=== PATIENT | female | born 1965 | race Caucasian/White ===

== ENCOUNTER 2018-08-28 10:58 | Inpatient (IN) | payer OTHER ==
[~2018-08-28] VITALS: Ht 160 cm; Wt 63.5 kg
[~2018-08-28 10:58] MED LIST: CARI350T NGT; FERR27TA; HYDR-3504 PO; MULT1TAB59 PO; PREN1TAB49; VENL225T PO
[2018-08-28 15:30] VITALS: BP 120/63; PULSE 85; RESP 16
[2018-08-28] MEDS ORDERED: GABA300S PO (16:44)
[2018-08-28] MEDS ORDERED: LAMO100T83 PO (16:48)
[2018-08-28] MEDS ORDERED: VENL50TA2 PO (16:50)
[2018-08-28] MEDS ORDERED: ACETAMINOPHEN 325 MG TAB PO PRN (17:30)
[2018-08-28] MEDS ORDERED: BISACODYL 10 MG SUPP PR PRN (17:30)
[2018-08-28] MEDS: SOD CHLORIDE 0.9% 1,000 ML IV SCH (17:58)
[2018-08-28] MEDS: CEFTRIAXONE 1 GM/50 ML (PMX) 50 ML IVPB SCH (17:58)
[2018-08-28] MEDS: LORAZEPAM 2 MG INJ IV PRN ×2 (18:12→22:16)
[2018-08-28 20:01] VITALS: BP 129/60; PULSE 84; RESP 20
--- NOTE | 2018-08-28 20:38 | QN ---
Documentation Comment [id number] EN STEPHENS MD Aug 28, 2018 20:37
[2018-08-28] MEDS: ALBUTEROL 0.083% (NEB) 2.5 MG/3 ML AMP HHN SCH (20:57)
[2018-08-28] MEDS: IPRATROPIUM (NEB) 0.5 MG/2.5 ML AMP HHN SCH (20:57)
[2018-08-28] MEDS: HEPARIN 5,000 UNIT/1 ML VIAL SC SCH (22:09)
[2018-08-28] MEDS: CHLORDIAZEPOXIDE 25 MG CAP PO SCH (22:09)
[2018-08-28] MEDS: morphine 2 MG INJ IV PRN (22:09)
[2018-08-29] MEDS: IPRATROPIUM (NEB) 0.5 MG/2.5 ML AMP HHN SCH ×6 (01:31→19:03)
[2018-08-29] MEDS: ALBUTEROL 0.083% (NEB) 2.5 MG/3 ML AMP HHN SCH ×4 (01:31→19:03)
[2018-08-29 02:11] VITALS: BP 111/56; PULSE 71; RESP 18
[2018-08-29] MEDS: PANTOPRAZOLE (EC) 40 MG TAB PO SCH (05:24)
[2018-08-29] MEDS: HEPARIN 5,000 UNIT/1 ML VIAL SC SCH ×2 (05:25→21:01)
[2018-08-29 07:34] VITALS: BP 107/54; PULSE 72; RESP 17
[2018-08-29] MEDS ORDERED: DOCUSATE SODIUM 100 MG CAP PO SCH (09:00)
[2018-08-29] MEDS ORDERED: MULTIVITAMINS 10 ML, THIAMINE 100 MG, FOLIC ACID 1 MG in SOD CHLORIDE 0.9% 1,000 ML IVPB SCH (09:00)
[2018-08-29] MEDS: THIAMINE 100 MG TAB PO SCH (09:22)
[2018-08-29] MEDS: CHLORDIAZEPOXIDE 25 MG CAP PO SCH ×3 (09:22→20:57)
[2018-08-29] MEDS: FOLIC ACID 1 MG TAB PO SCH (09:22)
[2018-08-29] MEDS: MULTIVITAMINS/MINERALS TAB PO SCH (09:22)
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
[2018-08-29] MEDS: morphine 2 MG INJ IV PRN ×3 (10:57→21:37)
[2018-08-29] MEDS ORDERED: DOCUSATE SODIUM 100 MG CAP PO PRN (12:00)
[2018-08-29] MEDS: SOD CHLORIDE 0.9% 1,000 ML IV SCH (13:47)
[2018-08-29 14:07] VITALS: BP 116/70; PULSE 87; RESP 18
[2018-08-29] MEDS: CEFTRIAXONE 1 GM/50 ML (PMX) 50 ML IVPB SCH (17:32)
[2018-08-29 19:48] VITALS: BP 121/61; PULSE 88; RESP 18
[2018-08-30] MEDS: ALBUTEROL 0.083% (NEB) 2.5 MG/3 ML AMP HHN SCH ×4 (00:36→20:02)
[2018-08-30] MEDS: IPRATROPIUM (NEB) 0.5 MG/2.5 ML AMP HHN SCH ×6 (00:36→20:02)
[2018-08-30 02:17] VITALS: BP 99/50; PULSE 85; RESP 18
[2018-08-30] MEDS: morphine 2 MG INJ IV PRN ×4 (04:05→20:21)
[2018-08-30] MEDS: LORAZEPAM 2 MG INJ IV PRN ×3 (04:34→21:18)
[2018-08-30] MEDS: PANTOPRAZOLE (EC) 40 MG TAB PO SCH (05:08)
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
[2018-08-30 08:03] VITALS: BP 112/68; PULSE 74; RESP 18
[2018-08-30] MEDS: CHLORDIAZEPOXIDE 25 MG CAP PO SCH ×3 (08:34→20:22)
[2018-08-30] MEDS: MULTIVITAMINS/MINERALS TAB PO SCH (08:34)
[2018-08-30] MEDS: THIAMINE 100 MG TAB PO SCH (08:34)
[2018-08-30] MEDS: FOLIC ACID 1 MG TAB PO SCH (08:34)
[2018-08-30] MEDS: HEPARIN 5,000 UNIT/1 ML VIAL SC SCH ×2 (08:37→20:24)
[2018-08-30] MEDS: SOD CHLORIDE 0.9% 1,000 ML IV SCH (11:50)
[2018-08-30 14:50] VITALS: BP 104/50; PULSE 77; RESP 18
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
[2018-08-30] MEDS: CEFTRIAXONE 1 GM/50 ML (PMX) 50 ML IVPB SCH (17:18)
[2018-08-30 19:54] VITALS: BP 106/61; PULSE 75; RESP 18
[2018-08-30 20:17] VITALS: BP 169/79; PULSE 80; RESP 18
[2018-08-31] MEDS: morphine 2 MG INJ IV PRN ×4 (00:37→13:59)
[2018-08-31] MEDS: LORAZEPAM 2 MG INJ IV PRN ×5 (01:21→22:39)
[2018-08-31] MEDS: IPRATROPIUM (NEB) 0.5 MG/2.5 ML AMP HHN SCH ×6 (02:03→20:44)
[2018-08-31] MEDS: ALBUTEROL 0.083% (NEB) 2.5 MG/3 ML AMP HHN SCH ×4 (02:03→20:00)
[2018-08-31 02:05] VITALS: BP 102/89; PULSE 85; RESP 18
[2018-08-31] MEDS: SOD CHLORIDE 0.9% 1,000 ML IV SCH ×2 (05:44→08:25)
[2018-08-31] MEDS: PANTOPRAZOLE (EC) 40 MG TAB PO SCH (05:45)
[2018-08-31 07:21] VITALS: BP 111/57; PULSE 87; RESP 18
[2018-08-31] MEDS: THIAMINE 100 MG TAB PO SCH (08:26)
[2018-08-31] MEDS: FOLIC ACID 1 MG TAB PO SCH (08:26)
[2018-08-31] MEDS: HEPARIN 5,000 UNIT/1 ML VIAL SC SCH ×2 (08:26→20:43)
[2018-08-31] MEDS: CHLORDIAZEPOXIDE 25 MG CAP PO SCH ×3 (08:26→20:42)
[2018-08-31] MEDS: MULTIVITAMINS/MINERALS TAB PO SCH (08:26)
[2018-08-31 14:44] VITALS: BP 118/61; PULSE 75; RESP 18
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
[2018-08-31] MEDS ORDERED: IBUPROFEN 400 MG TAB PO PRN (15:00)
[2018-08-31] MEDS: CEFTRIAXONE 1 GM/50 ML (PMX) 50 ML IVPB SCH (17:15)
--- NOTE | 2018-08-31 18:23 | PSY ---
Date/Time of Note Date/Time of Note DATE: 08/31/18 TIME: 18:19 Psychiatric Subjective Eval Consent Pt consented to telemedicine: No Subjective Evaluation Patient location: inpatient History of present illness Patient is a female who is currently in the [facility] admitted for alcohol abuse and delirium tremens. The patient currently denies any alcohol abuse now, but she reports feeling sad and anxious. Patient denies suicidal ideation and contracted for safety. Discussed risk and benefits of Lamictal and Effexor, which patient states at her regular psych meds and she verbalized understanding Hospitalization: other Family History Problems Family History Problems: (1) Family history of hepatitis C Relations: G8 SIBLING, onset: - 39 Allergies: Coded Allergies: No Known Allergies (Verified Allergy, Unknown, 11/10/14) Substance Abuse Substance abuse history: No Prior substance abuse treatmen: No Social History Marital status: other DPA/Conservatorship: No Psychiatric Objective Eval Review of Systems: Review of Systems: Not Applicable Physical Examination: Appetite: Decreased Energy: Decreased Mental Status Examination: Appearance: Poor Hygiene Eye Contact: Fair Psychomotor Activity: Slow Behavior: Cooperative Speech: Soft Though Process: Linear Orientation: x4 Insight: Mild Judgement: Mild Attention Span: Distractible Laboratory Results Laboratory Tests Test 08/30/18 05:58 White Blood Count 3.2 10^3/ul Red Blood Count 3.80 10^6/ul Hemoglobin 12.5 g/dl Hematocrit 38.4 % Mean Corpuscular Volume 101.1 fl Mean Corpuscular Hemoglobin 32.9 pg Mean Corpuscular Hemoglobin Concent 32.6 g/dl Red Cell Distribution Width 16.7 % Platelet Count 132 10^3/UL Mean Platelet Volume 9.3 fl Immature Granulocytes % 6.900 % Neutrophils % % Segmented Neutrophils % (Manual) 31 % Band Neutrophils % (Manual) 6 % Lymphocytes % % Lymphocytes % (Manual) 31 % Reactive Lymphocytes % (Manual) 2 % Monocytes % % Monocytes % (Manual) 19 % Eosinophils % % Eosinophils % (Manual) 5 % Basophils % % Basophils % (Manual) 2 % Metamyelocytes % (manual) 3 % Myelocytes % (Manual) 1 % Nucleated Red Blood Cells % 0.0 /100WBC Immature Granulocytes # 0.220 10^3/ul Neutrophils # 10^3/ul Neutrophils # (Manual) 1.0 10^3/ul Band Neutrophils # 0.1 10^3/ul Lymphocytes (Manual) 0.9 10^3/ul Lymphocytes # 10^3/ul Reactive Lymphocytes # 0.0 10^3/ul Monocytes # 10^3/ul Monocytes # (Manual) 0.6 10^3/ul Eosinophils # 10^3/ul Basophils # 10^3/ul Basophils # (Manual) 0.0 10^3/ul Metamyelocytes # 0.0 10^3/ul Myelocytes # 0.0 10^3/ul Nucleated Red Blood Cells # 10^3/ul Platelet Estimate DECREASED Polychromasia 2+ Anisocytosis 1+ Macrocytosis 1+ Sodium Level 143 mmol/L Potassium Level 3.8 mmol/L Chloride Level 108 mmol/L Carbon Dioxide Level 26 mmol/L Anion Gap 9 Blood Urea Nitrogen 16 mg/dl Creatinine 0.75 mg/dl Est Glomerular Filtrat Rate mL/min > 60 mL/min Glucose Level 109 mg/dl Calcium Level 9.9 mg/dl Assessment and Plan Assessment/Diagnosis Diagnosis Mood disorder NOS Recommendation/Plan Medication Management Lamictal 50 mg twice a day, Effexor 75 mg daily Multiple antipsychotics: No Psychotherapy Provide supportive therapy Discharge Disposition: Other Legal Status: Voluntary (Patient does not meet criteria for 5150 hold) MARCELLA DE OLIVEIRA NP Aug 31, 2018 18:22
[2018-08-31 20:00] VITALS: BP 114/61; PULSE 80; RESP 17
[2018-08-31 22:29] VITALS: Ht 160 cm; Wt 63.5 kg
[2018-09-01] MEDS: IPRATROPIUM (NEB) 0.5 MG/2.5 ML AMP HHN SCH ×6 (01:00→20:41)
[2018-09-01] MEDS: ALBUTEROL 0.083% (NEB) 2.5 MG/3 ML AMP HHN SCH ×4 (01:15→20:00)
[2018-09-01 02:00] VITALS: BP_SYST 121; BP_SYST 159; BP_DIAS 65; BP_DIAS 78; PULSE 80; RESP 17; RESP 19
[2018-09-01] MEDS: KETOROLAC 15 MG INJ IV PRN ×3 (05:10→20:52)
[2018-09-01] MEDS: PANTOPRAZOLE (EC) 40 MG TAB PO SCH (05:18)
[2018-09-01] MEDS: LORAZEPAM 2 MG INJ IV PRN ×3 (06:56→21:51)
[2018-09-01 07:48] VITALS: BP 99/54; PULSE 81; RESP 16
[2018-09-01] MEDS: FOLIC ACID 1 MG TAB PO SCH (08:11)
[2018-09-01] MEDS: MULTIVITAMINS/MINERALS TAB PO SCH (08:11)
[2018-09-01] MEDS: CHLORDIAZEPOXIDE 25 MG CAP PO SCH ×3 (08:12→20:49)
[2018-09-01] MEDS: THIAMINE 100 MG TAB PO SCH (08:12)
[2018-09-01] MEDS: HEPARIN 5,000 UNIT/1 ML VIAL SC SCH ×2 (08:13→20:51)
[2018-09-01] MEDS: LAMOTRIGINE 25 MG TAB PO SCH ×2 (11:22→20:49)
[2018-09-01] MEDS: VENLAFAXINE 75 MG TABLET PO SCH (11:30)
[2018-09-01] MEDS: ONDANSETRON 4 MG INJ IV PRN ×2 (12:32→20:52)
[2018-09-01 14:00] VITALS: BP 121/58; PULSE 75; RESP 18
[2018-09-01] MEDS: SOD CHLORIDE 0.9% 1,000 ML IV SCH ×2 (14:14→22:00)
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
[2018-09-01] MEDS: CEFTRIAXONE 1 GM/50 ML (PMX) 50 ML IVPB SCH (18:00)
[2018-09-01 20:00] VITALS: BP_SYST 122; BP_SYST 159; BP_DIAS 60; BP_DIAS 78; PULSE 96; PULSE 99; RESP 17
[2018-09-02] MEDS: IPRATROPIUM (NEB) 0.5 MG/2.5 ML AMP HHN SCH ×4 (01:00→17:00)
[2018-09-02] MEDS: ALBUTEROL 0.083% (NEB) 2.5 MG/3 ML AMP HHN SCH ×3 (01:44→13:31)
[2018-09-02 02:30] VITALS: BP 101/60; PULSE 78; RESP 18
[2018-09-02] MEDS: PANTOPRAZOLE (EC) 40 MG TAB PO SCH (05:32)
[2018-09-02] MEDS: KETOROLAC 15 MG INJ IV PRN ×2 (05:32→11:43)
[2018-09-02] MEDS: LORAZEPAM 2 MG INJ IV PRN (06:45)
[2018-09-02] MEDS: LAMOTRIGINE 25 MG TAB PO SCH (08:26)
[2018-09-02] MEDS: VENLAFAXINE 75 MG TABLET PO SCH (08:26)
[2018-09-02] MEDS: THIAMINE 100 MG TAB PO SCH (08:27)
[2018-09-02] MEDS: HEPARIN 5,000 UNIT/1 ML VIAL SC SCH (08:27)
[2018-09-02] MEDS: CHLORDIAZEPOXIDE 25 MG CAP PO SCH ×2 (08:27→13:27)
[2018-09-02] MEDS: FOLIC ACID 1 MG TAB PO SCH (08:27)
[2018-09-02] MEDS: MULTIVITAMINS/MINERALS TAB PO SCH (08:27)
[2018-09-02] MEDS: ONDANSETRON 4 MG INJ IV PRN (09:30)
[2018-09-02] MEDS: SOD CHLORIDE 0.9% 1,000 ML IV SCH (14:41)
--- NOTE | 2018-09-02 15:33 | PDOCDIS ---
Discharge Instructions DIAGNOSIS Discharge Diagnosis mood disorder tremolousness alcholol use CONDITION [id number] Patient Condition: Yphum7u Fair HOME CARE INSTRUCTIONS: [id number] Diet Instructions: Udyid8c Regular ACTIVITY: [id number] Activity Restrictions: Srlsi4h No Restrictions Slowly Increase Activity Rest between Activity [id number] Bathing Restrictions: [id number] Shower [id number] Activity Restrictions Comment: Fmdae7r use walker FOLLOW UP/APPOINTMENTS Follow-up Plan fu PCP in 1 week fu pscychatrsit in1 -2 weeks avoid stressors/alcholol home health to CHRISTI Everett MD Sep 02, 2018 15:33
[2018-09-02] MEDS ORDERED: THIA100T56 PO (15:35)
[2018-09-02] MEDS ORDERED: PANT40TA4 PO (15:35)
[2018-09-02] MEDS ORDERED: FOLI-49 PO (15:35)
[2018-09-02] MEDS ORDERED: VENL75TA PO (15:35)
[2018-09-02] MEDS ORDERED: CHLO25CA9 PO (15:35)
[2018-09-02] MEDS ORDERED: IBUP-1541 PO (15:35)
[2018-09-02] MEDS ORDERED: LAMO25TA8 PO (15:35)
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
== END 2018-09-02 17:15 | disposition home health service (06) | DRG 897 ==
LOC: PP2 15:26 → 5EC 19:24
PROVIDERS: ADMIT Internal Medicine Nephrology; ATTEND Internal Medicine Nephrology
DX: F10.231 Alcohol dependence with withdrawal delirium (principal); D61.818 Other pancytopenia; N39.0 Urinary tract infection, site not specified; D64.9 Anemia, unspecified; M54.5 Low back pain; F31.9 Bipolar disorder, unspecified; R94.5 Abnormal results of liver function studies
CPT/HCPCS: 76705; 80048; 80053; 82607; 82746; 84703; 85025; 87081; 94640; 94664; 97116; 97161; 97530; J0696; J1644; J1885; J2060; J2270; J2405; J7030

== ENCOUNTER 2018-09-26 15:12 | Inpatient (IN) | payer OTHER ==
[~2018-09-26] VITALS: Ht 160 cm; Wt 60.9 kg
[~2018-09-26 15:12] MED LIST changes: -CARI350T NGT; +CHLO25CA9 PO; +FOLI-49 PO; -HYDR-3504 PO; +IBUP-1541 PO; +LAMO25TA8 PO; +PANT40TA4 PO; +THIA100T56 PO; -VENL225T PO; +VENL75TA PO
[2018-09-26 17:30] VITALS: BP 115/85; PULSE 90; RESP 16; Ht 160 cm; Wt 60.9 kg
[2018-09-26] MEDS ORDERED: ACETAMINOPHEN 325 MG TAB PO PRN (18:30)
[2018-09-26] MEDS: LORAZEPAM 2 MG INJ IV PRN (19:11)
[2018-09-26 20:00] VITALS: BP 124/59; PULSE 82; RESP 18
[2018-09-26] MEDS: CEFTRIAXONE 1 GM/50 ML (PMX) 50 ML IVPB SCH (22:23)
[2018-09-26] MEDS: POTASSIUM CHLORIDE 10 MEQ in SOD CHLORIDE 0.45% 1,000 ML IV SCH (22:23)
[2018-09-27] MEDS: LORAZEPAM 2 MG INJ IV PRN ×6 (01:21→23:38)
[2018-09-27] MEDS: ONDANSETRON 4 MG INJ IV PRN ×4 (01:21→18:37)
[2018-09-27 02:00] VITALS: BP 128/71; PULSE 91; RESP 17
[2018-09-27] MEDS: traMADol 50 MG TAB PO PRN ×2 (04:51→10:48)
[2018-09-27] MEDS: PANTOPRAZOLE (EC) 40 MG TAB PO SCH (06:30)
[2018-09-27 08:04] VITALS: BP 117/71; PULSE 82; RESP 18
[2018-09-27] MEDS: MULTIVITAMINS 10 ML, THIAMINE 100 MG, FOLIC ACID 1 MG in SOD CHLORIDE 0.9% 1,000 ML IVPB SCH (09:16)
[2018-09-27] MEDS: POTASSIUM CHLORIDE 10 MEQ in SOD CHLORIDE 0.45% 1,000 ML IV SCH ×2 (09:18→18:37)
[2018-09-27 14:00] VITALS: BP 120/68; PULSE 67; RESP 18
--- NOTE | 2018-09-27 15:21 | QN ---
Documentation Comment pt seen and examined CHRISTI SANDS MD Sep 27, 2018 15:21
[2018-09-27] MEDS ORDERED: ONDANSETRON 4 MG INJ IV PRN (16:00)
[2018-09-27] MEDS: CEFTRIAXONE 1 GM/50 ML (PMX) 50 ML IVPB SCH (18:34)
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
[2018-09-27 20:00] VITALS: BP 120/62; PULSE 77; RESP 18
[2018-09-27] MEDS: morphine 2 MG INJ IV PRN (20:14)
[2018-09-28] MEDS: morphine 2 MG INJ IV PRN ×5 (00:55→18:08)
[2018-09-28 02:00] VITALS: BP 121/70; PULSE 79; RESP 17
[2018-09-28] MEDS: ONDANSETRON 4 MG INJ IV PRN ×3 (04:04→16:21)
[2018-09-28] MEDS: LORAZEPAM 2 MG INJ IV PRN ×5 (04:04→20:51)
[2018-09-28] MEDS: PANTOPRAZOLE (EC) 40 MG TAB PO SCH (05:35)
[2018-09-28] MEDS: MULTIVITAMINS 10 ML, THIAMINE 100 MG, FOLIC ACID 1 MG in SOD CHLORIDE 0.9% 1,000 ML IVPB SCH (08:17)
[2018-09-28 08:23] VITALS: BP 118/60; PULSE 85; RESP 18
[2018-09-28] MEDS: POTASSIUM CHLORIDE 10 MEQ in SOD CHLORIDE 0.45% 1,000 ML IV SCH ×2 (11:43→20:47)
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
[2018-09-28] MEDS: MECLIZINE 12.5 MG TAB PO SCH ×2 (12:16→21:59)
[2018-09-28] MEDS ORDERED: PREMVAG VAG (13:10)
[2018-09-28] MEDS ORDERED: CLOT30CR24 TOP (13:10)
[2018-09-28] MEDS ORDERED: LAMO100T PO (13:10)
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
[2018-09-28 14:34] VITALS: BP 111/56; PULSE 67; RESP 19
--- NOTE | 2018-09-28 15:46 | PSY ---
Date/Time of Note Date/Time of Note DATE: 09/28/18 TIME: 15:43 Psychiatric Subjective Eval Consent Pt consented to telemedicine: No Subjective Evaluation Patient location: inpatient History of present illness Patient is a 53year old female who is admitted for alcohol abuse and delirium tremens. The patient reports feeling sad and anxious, denies suicidal ideation and contracted for safety. Discussed risk and benefits of Lamictal and Effexor, and she verbalized understanding Past psychiatric history Past psychiatric history Long history of depression Hospitalization: other Family History Problems Family History Problems: (1) Family history of hepatitis C Relations: G8 [place], onset: 30's - 40 Allergies: Coded Allergies: No Known Allergies (Verified Allergy, Unknown, 11/10/14) Substance Abuse Substance abuse history: Yes Prior substance abuse treatmen: Yes Social History Marital status: single DPA/Conservatorship: No Psychiatric Objective Eval Physical Examination: Appetite: Decreased Interest: Decreased Mental Status Examination: Appearance: Poor Hygiene Eye Contact: Fair Behavior: Cooperative Speech: Soft AFFECT: Flat Mood: Appropriate/Full Though Process: Linear Orientation: x3 Attention Span: Distractible Laboratory Results Laboratory Tests Test 09/27/18 04:22 09/27/18 16:13 09/27/18 16:50 White Blood Count 4.1 10^3/ul Red Blood Count 3.81 10^6/ul Hemoglobin 12.7 g/dl Hematocrit 38.0 % Mean Corpuscular Volume 99.7 fl Mean Corpuscular Hemoglobin 33.3 pg Mean Corpuscular 33.4 g/dl Hemoglobin Concent Red Cell Distribution Width 13.9 % Platelet Count 110 10^3/UL Mean Platelet Volume 9.4 fl Immature Granulocytes % 0.200 % Neutrophils % 67.0 % Lymphocytes % 21.4 % Monocytes % 8.7 % Eosinophils % 1.7 % Basophils % 1.0 % Nucleated Red Blood Cells % 0.0 /100WBC Immature Granulocytes # 0.010 10^3/ul Neutrophils # 2.8 10^3/ul Lymphocytes # 0.9 10^3/ul Monocytes # 0.4 10^3/ul Eosinophils # 0.1 10^3/ul Basophils # 0.0 10^3/ul Nucleated Red Blood Cells # 0.0 10^3/ul Sodium Level 140 mmol/L 139 mmol/L Potassium Level 4.3 mmol/L 3.8 mmol/L Chloride Level 103 mmol/L 103 mmol/L Carbon Dioxide Level 29 mmol/L 26 mmol/L Anion Gap 8 10 Blood Urea Nitrogen 4 mg/dl 4 mg/dl Creatinine 0.86 mg/dl 1.01 mg/dl Est Glomerular Filtrat > 60 mL/min 57 mL/min Rate mL/min Glucose Level 94 mg/dl 83 mg/dl Calcium Level 9.4 mg/dl 9.7 mg/dl Total Bilirubin 1.1 mg/dl Direct Bilirubin 0.00 mg/dl Indirect Bilirubin 1.1 mg/dl Aspartate Amino 100 IU/L Transf (AST/SGOT) Alanine 137 IU/L Aminotransferase (ALT/SGPT) Alkaline Phosphatase 88 IU/L Total Protein 6.9 g/dl Albumin 4.5 g/dl Globulin 2.40 g/dl Albumin/Globulin Ratio 1.87 Urine Color COLORLESS Urine Clarity CLEAR Urine pH 6.0 Urine Specific [place] 1.002 Urine Ketones NEGATIVE mg/dL Urine Nitrite NEGATIVE mg/dL Urine Bilirubin NEGATIVE mg/dL Urine Urobilinogen NEGATIVE mg/dL Urine Leukocyte Esterase NEGATIVE Jason/ul Urine Hemoglobin NEGATIVE mg/dL Urine Glucose NEGATIVE mg/dL Urine Total Protein NEGATIVE mg/dl Assessment and Plan Assessment/Diagnosis Diagnosis Bipolar 11 disorder by history Recommendation/Plan Medication Management Lamictal 50 mg twice a day, Effexor 75 mg daily Multiple antipsychotics: No Discharge Disposition: Other Legal Status: Voluntary (Does not meet criteria for 5150 hold) MARCELLA DE OLIVEIRA NP Sep 28, 2018 15:46
[2018-09-28] MEDS: ESTROGENS CONJUGATED 42.5 GM VAG CR VAG SCH (16:14)
[2018-09-28] MEDS: LAMOTRIGINE 25 MG TAB PO SCH ×2 (16:15→21:59)
[2018-09-28] MEDS: VENLAFAXINE 75 MG TABLET PO SCH (16:44)
[2018-09-28 18:00] VITALS: BP 134/75; PULSE 88; RESP 17
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
[2018-09-28 19:53] VITALS: BP 111/58; PULSE 83; RESP 18
[2018-09-28] MEDS: CEFTRIAXONE 1 GM/50 ML (PMX) 50 ML IVPB SCH (20:48)
[2018-09-28] MEDS: CHLORDIAZEPOXIDE 25 MG CAP PO SCH (20:53)
[2018-09-29] VITALS (11 sets, daily range): BP systolic 96–119; BP diastolic 46–65; PULSE 65–78; RESP 16–24
[2018-09-29] MEDS: POTASSIUM CHLORIDE 10 MEQ in SOD CHLORIDE 0.45% 1,000 ML IV SCH (01:36)
[2018-09-29] MEDS: PANTOPRAZOLE (EC) 40 MG TAB PO SCH (06:00)
[2018-09-29] MEDS: ONDANSETRON 4 MG INJ IV PRN ×3 (06:26→19:41)
[2018-09-29] MEDS: LORAZEPAM 2 MG INJ IV PRN ×3 (06:26→21:28)
[2018-09-29] MEDS: morphine 2 MG INJ IV PRN ×4 (06:27→19:42)
[2018-09-29] MEDS: MECLIZINE 12.5 MG TAB PO SCH ×3 (08:56→20:27)
[2018-09-29] MEDS: LAMOTRIGINE 25 MG TAB PO SCH ×2 (08:56→20:28)
[2018-09-29] MEDS: CHLORDIAZEPOXIDE 25 MG CAP PO SCH ×3 (08:56→20:27)
[2018-09-29] MEDS: MULTIVITAMINS 10 ML, THIAMINE 100 MG, FOLIC ACID 1 MG in SOD CHLORIDE 0.9% 1,000 ML IVPB SCH (08:57)
[2018-09-29] MEDS: VENLAFAXINE 75 MG TABLET PO SCH (08:57)
[2018-09-29] MEDS: ESTROGENS CONJUGATED 42.5 GM VAG CR VAG SCH (09:00)
--- NOTE | 2018-09-29 13:15 | PREAC ---
Date/Time of Note Date/Time of Note DATE: 09/29/18 TIME: 13:14 Anesthesia Eval and Record Evaluation Time Pre-Procedure Interview DATE: 09/29/18 TIME: 13:14 Age 53 Sex female NPO: 8 hrs Preoperative diagnosis ABDOMINAL PAIN, NAUSEA VOMITING Planned procedure EGD Past Medical History Past Medical History: Includes Heme: Anemia Psych: Depression, Anxiety Surgery & Anesthesia Issues No known issue Meds Anticoagulation: No Beta Pilar within 24 hr: No Reason Beta Pilar not given: Pt. not on B-Pilar Active Scripts Folic Acid* (Folic Acid*) 1 Mg Tablet, 1 MG PO DAILY for 30 Days, TAB Prov:CHRISTI SANDS MD 09/02/18 Thiamine* (Vitamin B-1*) 100 Mg Tablet, 100 MG PO DAILY for 30 Days, TAB Prov:CHRISTI SANDS MD 09/02/18 Pantoprazole* (Pantoprazole*) 40 Mg Tablet.dr, 40 MG PO DAILY@06 for 30 Days Prov:CHRISTI SANDS MD 09/02/18 Venlafaxine Hcl* (Venlafaxine Hcl*) 75 Mg Tablet, 75 MG PO DAILY for 30 Days, TAB Prov:CHRISTI SANDS MD 09/02/18 Chlordiazepoxide* (Chlordiazepoxide*) 25 Mg Capsule, 25 MG PO TID for 3 Days, CAP Prov:CHRISTI SANDS MD 09/02/18 Ibuprofen* (Ibuprofen*) 400 Mg Tablet, 400 MG PO Q6H PRN for MILD PAIN(1-3) OR TEMP>38C for 30 Days, TAB Prov:CHRISTI SANDS MD 09/02/18 Reported Medications Clotrimazole* (Clotrimazole* AF) 1% - 30 Gm Cream.gm., 1 APPLIC TOP BID, TUB 09/28/18 Estrogens Conjugated* (Premarin* Vaginal Cream) 1 Applic Cr, 1 APPLIC VAG weekly, TUB 09/28/18 Lamotrigine* (Lamotrigine*) 100 Mg Tablet, 50 MG PO BID, TAB 09/28/18 Multivitamins* (Multivitamins*) 1 Tab Tablet, 1 TAB PO DAILY 08/05/11 Ferrous Sulfate (Iron) 1 Tab Tablet 12/28/09 Vits W-Ca,Fe,Fa(<1MG) () 1 Tab Tablet 12/28/09 Discontinued Scripts Lamotrigine* (Lamotrigine*) 25 Mg Tablet, 50 MG PO BID for 30 Days, TAB Prov:CHRISTI SANDS MD 09/02/18 Current Medications Potassium Chloride 10 meq/ Sodium Chloride 1,005 ml @ 75 mls/hr [id number] IV Last administered on 09/28/18 20:47; Admin Dose 75 MLS/HR; Start 09/26/18 at 20:00 Multivitamins 10 ml/Thiamine HCl 100 mg/Folic Acid 1 mg/Sodium Chloride 1,011.2 ml @ 125 mls/ hr DAILY@09 IVPB Last administered on 09/29/18 08:57; Admin Dose 125 MLS/HR; Start 09/27/18 at 09:00 Pantoprazole (Protonix Tab) 40 mg DAILY@06 PO Last administered on 09/28/18 05:35; Admin Dose 40 MG; Start 09/27/18 at 06:00 Ceftriaxone Sodium 50 ml @ 100 mls/hr Q24H IVPB Last administered on 09/28/18 20:48; Admin Dose 100 MLS/HR; Start 09/26/18 at 19:15 Acetaminophen (Tylenol Tab) 650 mg Q6H PRN PO MILD PAIN(1-3)OR ELEVATED TEMP; Start 09/26/18 at 18:30 Lorazepam (Ativan) 1 mg Q4 PRN IV ETOH WITHDRAW / ANXIETY Last administered on 09/29/18 12:13; Admin Dose 1 MG; Start 09/26/18 at 18:30 Tramadol HCl (Ultram) 50 mg Q6H PRN PO MODERATE PAIN LEVEL 4-6 Last administered on 09/27/18 10:48; Admin Dose 50 MG; Start 09/26/18 at 19:00 Ondansetron HCl (Zofran Inj) 4 mg Q6H PRN IV NAUSEA AND/OR VOMITING Last administered on 09/29/18 12:24; Admin Dose 4 MG; Start 09/26/18 at 21:00 Morphine Sulfate (morphine) 1 mg Q4H PRN IV SEVERE PAIN LEVEL 7-10 Last administered on 09/29/18 10:48; Admin Dose 1 MG; Start 09/27/18 at 16:00 Meclizine HCl (Antivert) 12.5 mg TID PO Last administered on 09/29/18at 12:13; Admin Dose 12.5 MG; Start 09/28/18 at 13:00 Chlordiazepoxide (Librium) 25 mg TID PO Last administered on 09/29/18at 12:13; Admin Dose 25 MG; Start 09/28/18 at 21:00 Estrogens Conjugated (Premarin Vaginal Cr) 1 applic DAILY VAG Last administered on 09/28/18at 16:14; Admin Dose 1 APPLIC; Start 09/28/18 at 14:30 Lamotrigine (Lamictal) 50 mg BID PO Last administered on 09/29/18 08:56; Admin Dose 50 MG; Start 09/28/18 at 14:30 Venlafaxine HCl (Effexor) 75 mg DAILY PO Last administered on 09/29/18 08:57; Admin Dose 75 MG; Start 09/28/18 at 14:30 Meds reviewed: Yes Allergies Coded Allergies: No Known Allergies (Verified Allergy, Unknown, 11/10/14) Allergies Reviewed: Yes Labs/Studies Labs Reviewed: Reviewed by anesthesiologist Result Diagram: 09/27/18 0422 09/29/18 0450 Laboratory Tests 09/29/18 04:50 test: N/A Pre-procedure Exam Last vitals Vital Signs Date Temp Pulse Resp B/P (MAP) Pulse Ox O2 O2 Flow FiO2 Time Delivery Rate 09/29/18 97.6 76 24 111/59 97 Room Air 13:06 (76) Airway: Adequate mouth opening, Adequate thyromental dist Mallampati: Mallampati II Teeth: Normal Lung: Normal Heart: Normal ASA Physical Status ASA physical status: 1 Emergency: None Planned Anesthetic General/MAC: MAC Planned Pain Management Parenteral pain med Pre-operative Attestations Prior to commencing anesthesia and surgery, the patient was re-evaluated, there was verification of: *The patient's identity *The results of appropriate recent lab work and preoperative vital signs *The above evaluation not changing prior to induction *Anesthetic plan, risk benefits, alternative and complications discussed with patient/family; questions answered; patient/family understands, accepts and wishes to proceed. Richard Penaloza M.D. Sep 29, 2018 13:15
[2018-09-29] MEDS ORDERED: LIDOCAINE 2% (SDV) 5 ML INJ ONE (13:16)
[2018-09-29] MEDS ORDERED: PROPOFOL 20 ML ONE (13:16)
[2018-09-29] MEDS ORDERED: FENTAnyl 50 MCG/ML VIAL ONE (13:16)
--- NOTE | 2018-09-29 13:38 | PAC ---
Date/Time of Note Date/Time of Note DATE: 09/29/18 TIME: 13:38 Post-Anesthesia Notes Post-Anesthesia Note Last documented vital signs Vital Signs Date Temp Pulse Resp B/P (MAP) Pulse Ox O2 O2 Flow FiO2 Time Delivery Rate 09/29/18 97.6 76 24 111/59 97 Room Air 13:06 (76) Activity: WNL Respiratory function: WNL Cardiovascular function: WNL Mental status: Baseline Pain reasonably controlled: Yes Hydration appropriate: Yes Nausea/Vomiting absent: Yes Richard Penaloza M.D. Sep 29, 2018 13:38
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
[2018-09-29] MEDS: CIPROFLOXACIN 250 MG TAB PO SCH (18:06)
[2018-09-30 01:43] VITALS: BP 116/62; PULSE 76; RESP 18
[2018-09-30] MEDS: morphine 2 MG INJ IV PRN ×3 (03:07→13:06)
[2018-09-30] MEDS: ONDANSETRON 4 MG INJ IV PRN ×2 (04:25→20:04)
[2018-09-30] MEDS: LORAZEPAM 2 MG INJ IV PRN ×3 (04:25→15:40)
[2018-09-30] MEDS: PANTOPRAZOLE (EC) 40 MG TAB PO SCH (05:34)
[2018-09-30] MEDS: CIPROFLOXACIN 250 MG TAB PO SCH ×2 (05:34→17:09)
[2018-09-30 07:20] VITALS: BP 103/57; PULSE 71; RESP 18
[2018-09-30] MEDS: MECLIZINE 12.5 MG TAB PO SCH ×3 (07:50→20:04)
[2018-09-30] MEDS: LAMOTRIGINE 25 MG TAB PO SCH ×2 (07:51→20:03)
[2018-09-30] MEDS: VENLAFAXINE 75 MG TABLET PO SCH (07:51)
[2018-09-30] MEDS: CHLORDIAZEPOXIDE 25 MG CAP PO SCH ×2 (07:51→20:04)
[2018-09-30] MEDS: ESTROGENS CONJUGATED 42.5 GM VAG CR VAG SCH (07:53)
[2018-09-30 13:42] VITALS: BP 94/50; PULSE 83; RESP 18
--- NOTE | 2018-09-30 17:44 | PN ---
Date/Time of Note Date/Time of Note DATE: 09/30/18 TIME: 17:44 Assessment/Plan VTE Prophylaxis Risk score (from Ns)>0 risk: 2 SCD applied (from Nsg): No Lines/Catheters IV Catheter Type (from Nrs): Saline Lock Urinary Cath still in place: No Assessment/Plan Result Diagram: 09/30/18 0419 09/30/18 0418 Results 24hrs Laboratory Tests Test 09/30/18 04:18 09/30/18 04:19 Sodium Level 140 Potassium Level 3.8 Chloride Level 104 Carbon Dioxide Level 27 Anion Gap 9 Blood Urea Nitrogen 15 Creatinine 0.92 Est Glomerular Filtrat Rate mL/min > 60 Glucose Level 92 Calcium Level 9.6 Total Bilirubin 0.8 Direct Bilirubin 0.00 Indirect Bilirubin 0.8 Aspartate Amino Transf (AST/SGOT) 68 H Alanine Aminotransferase (ALT/SGPT) 126 H Alkaline Phosphatase 82 Total Protein 6.8 Albumin 4.0 Globulin 2.80 Albumin/Globulin Ratio 1.42 White Blood Count 3.3 L Red Blood Count 3.74 L Hemoglobin 12.5 Hematocrit 37.9 Mean Corpuscular Volume 101.3 H Mean Corpuscular Hemoglobin 33.4 H Mean Corpuscular Hemoglobin Concent 33.0 Red Cell Distribution Width 13.6 Platelet Count 128 L Mean Platelet Volume 9.5 Immature Granulocytes % 0.600 H Neutrophils % 49.2 Lymphocytes % 30.2 Monocytes % 11.2 H Eosinophils % 7.6 H Basophils % 1.2 Nucleated Red Blood Cells % 0.0 Immature Granulocytes # 0.020 Neutrophils # 1.6 Lymphocytes # 1.0 Monocytes # 0.4 Eosinophils # 0.3 Basophils # 0.0 Nucleated Red Blood Cells # 0.0 Phosphorus Level 3.9 Magnesium Level 1.9 Exam/Review of Systems Exam Vitals Vital Signs Date Temp Pulse Resp B/P (MAP) Pulse Ox O2 O2 Flow FiO2 Time Delivery Rate 09/30/18 97.8 83 18 94/50 (65) 97 Room Air 13:42 Intake and Output 09/29/18 09/29/18 09/30/18 1515:00 23:00 07:00 IntakeIntake Total 200 ml BalanceBalance 200 ml Results Results 24hrs Laboratory Tests Test 09/30/18 04:18 09/30/18 04:19 Sodium Level 140 Potassium Level 3.8 Chloride Level 104 Carbon Dioxide Level 27 Anion Gap 9 Blood Urea Nitrogen 15 Creatinine 0.92 Est Glomerular Filtrat Rate mL/min > 60 Glucose Level 92 Calcium Level 9.6 Total Bilirubin 0.8 Direct Bilirubin 0.00 Indirect Bilirubin 0.8 Aspartate Amino Transf (AST/SGOT) 68 H Alanine Aminotransferase (ALT/SGPT) 126 H Alkaline Phosphatase 82 Total Protein 6.8 Albumin 4.0 Globulin 2.80 Albumin/Globulin Ratio 1.42 White Blood Count 3.3 L Red Blood Count 3.74 L Hemoglobin 12.5 Hematocrit 37.9 Mean Corpuscular Volume 101.3 H Mean Corpuscular Hemoglobin 33.4 H Mean Corpuscular Hemoglobin Concent 33.0 Red Cell Distribution Width 13.6 Platelet Count 128 L Mean Platelet Volume 9.5 Immature Granulocytes % 0.600 H Neutrophils % 49.2 Lymphocytes % 30.2 Monocytes % 11.2 H Eosinophils % 7.6 H Basophils % 1.2 Nucleated Red Blood Cells % 0.0 Immature Granulocytes # 0.020 Neutrophils # 1.6 Lymphocytes # 1.0 Monocytes # 0.4 Eosinophils # 0.3 Basophils # 0.0 Nucleated Red Blood Cells # 0.0 Phosphorus Level 3.9 Magnesium Level 1.9 Medications Medication Current Medications Pantoprazole (Protonix Tab) 40 mg DAILY@06 PO Last administered on 09/30/18at 05:34; Admin Dose 40 MG; Start 09/27/18 at 06:00 Acetaminophen (Tylenol Tab) 650 mg Q6H PRN PO MILD PAIN(1-3)OR ELEVATED TEMP; Start 09/26/18 at 18:30 Lorazepam (Ativan) 1 mg Q4 PRN IV ETOH WITHDRAW / ANXIETY Last administered on 09/30/18at 15:40; Admin Dose 1 MG; Start 09/26/18 at 18:30 Tramadol HCl (Ultram) 50 mg Q6H PRN PO MODERATE PAIN LEVEL 4-6 Last administered on 09/27/18at 10:48; Admin Dose 50 MG; Start 09/26/18 at 19:00 Ondansetron HCl (Zofran Inj) 4 mg Q6H PRN IV NAUSEA AND/OR VOMITING Last administered on 09/30/18at 04:25; Admin Dose 4 MG; Start 09/26/18 at 21:00 Morphine Sulfate (morphine) 1 mg Q4H PRN IV SEVERE PAIN LEVEL 7-10 Last administered on 09/30/18 13:06; Admin Dose 1 MG; Start 09/27/18 at 16:00 Meclizine HCl (Antivert) 12.5 mg TID PO Last administered on 09/30/18 12:26; Admin Dose 12.5 MG; Start 09/28/18 at 13:00 Estrogens Conjugated (Premarin Vaginal Cr) 1 applic DAILY VAG Last administered on 09/30/18 07:53; Admin Dose 1 APPLIC; Start 09/28/18 at 14:30 Lamotrigine (Lamictal) 50 mg BID PO Last administered on 09/30/18 07:51; Admin Dose 50 MG; Start 09/28/18 at 14:30 Venlafaxine HCl (Effexor) 75 mg DAILY PO Last administered on 09/30/18 07:51; Admin Dose 75 MG; Start 09/28/18 at 14:30 Chlordiazepoxide (Librium) 25 mg BID PO Last administered on 09/30/18 07:51; Admin Dose 25 MG; Start 09/29/18 at 21:00 Ciprofloxacin (Cipro) 250 mg BID@06,18 PO Last administered on 09/30/18 17:09; Admin Dose 250 MG; Start 09/29/18 at 18:00 CHRISTI SANDS MD Sep 30, 2018 17:44
--- NOTE | 2018-09-30 17:45 | PDOCDIS ---
Discharge Instructions DIAGNOSIS Discharge Diagnosis esophagitis gastritis depression anxiety alcholol use CONDITION [id number] Patient Condition: [id number] Fair HOME CARE INSTRUCTIONS: [id number] Diet Instructions: [id number] [place] diet [id number] Special Diet: Noriq1z bland diet ACTIVITY: [id number] Activity Restrictions: [id number] No Restrictions Slowly Increase Activity Rest between Activity Avoid heavy lifting [id number] Bathing Restrictions: [id number] Shower FOLLOW UP/APPOINTMENTS Follow-up Plan fu PCP in 1 -2 weeks fu gi in 2-3 weeks alcholol cessation CHRISTI SANDS MD Sep 30, 2018 17:45
[2018-09-30] MEDS ORDERED: MECL12.574 PO (17:48)
[2018-09-30] MEDS ORDERED: CHLO25CA9 PO (17:48)
[2018-09-30] MEDS ORDERED: CIPR-193 PO (17:48)
[2018-09-30 19:57] VITALS: BP 90/54; PULSE 73
[2018-09-30 20:16] VITALS: BP 84/48; PULSE 71; RESP 18
[2018-10-01] MEDS: morphine 2 MG INJ IV PRN ×3 (01:45→10:56)
[2018-10-01 02:32] VITALS: BP 118/56; PULSE 62; RESP 17
[2018-10-01] MEDS: LORAZEPAM 2 MG INJ IV PRN ×2 (02:56→08:36)
[2018-10-01] MEDS: PANTOPRAZOLE (EC) 40 MG TAB PO SCH (05:41)
[2018-10-01] MEDS: CIPROFLOXACIN 250 MG TAB PO SCH (05:41)
[2018-10-01 07:30] VITALS: BP 98/54; PULSE 72; RESP 18
[2018-10-01] MEDS: CHLORDIAZEPOXIDE 25 MG CAP PO SCH (08:35)
[2018-10-01] MEDS: VENLAFAXINE 75 MG TABLET PO SCH (08:35)
[2018-10-01] MEDS: LAMOTRIGINE 25 MG TAB PO SCH (08:35)
[2018-10-01] MEDS: MECLIZINE 12.5 MG TAB PO SCH ×2 (08:35→12:30)
[2018-10-01] MEDS: ESTROGENS CONJUGATED 42.5 GM VAG CR VAG SCH (08:36)
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
[2018-10-01 14:00] VITALS: BP 107/56; PULSE 59; RESP 18
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
== END 2018-10-01 15:09 | disposition still patient (30) | DRG 381 ==
LOC: PP2 16:50 → MERGE 16:50 → 5EC 09-28 17:05
PROVIDERS: ADMIT Internal Medicine Nephrology; ATTEND Internal Medicine Nephrology
PROC: 0DB68ZX Excision of Stomach, Via Natural or Artificial Opening Endoscopic, Diagnostic (ICD-10-PCS; principal; 2018-09-29 13:00)
DX: K22.10 Ulcer of esophagus without bleeding (principal); F31.81 Bipolar II disorder; K29.00 Acute gastritis without bleeding; F10.10 Alcohol abuse, uncomplicated; Z91.81 History of falling
CPT/HCPCS: 74181; 80048; 80053; 81003; 83735; 84100; 85025; 87081; 87086; 88305; 97110; 97116; 97161; 97530; J0696; J2060; J2270; J2405; J3010; J3411; J3480; J7030